=== PATIENT | male | born 1990 | race Caucasian/White ===

== ENCOUNTER 2018-11-08 19:26 | Emergency (ER) | payer OTHER ==
[~2018-11-08] VITALS: Ht 182.9 cm; Wt 83.0 kg
[~2018-11-08 19:26] MED LIST: AMPDEX10CR PO; HYDACE5 PO; IBUP400 PO; MINO100; Norco 5-325 Ta1 EACH PO
[2018-11-08 19:57] LABS: Source, Urine Clean Catch
[2018-11-08 19:59] LABS: Bilirubin, Urine Neg (Neg); Blood, Urine Neg (Neg); Glucose Qualitative, Urine Neg (Neg); Ketones, Urine Neg (Neg); Leukocyte Esterase, Urine 1+ (Neg); Nitrite, Urine Neg (Neg); Protein, Urine Neg (Neg); Urobilinogen, Urine NORM (Normal)
[2018-11-08 20:34] LABS: Appearance, Urine Clear (Clear); Color, Urine Yellow (P-Yellow)
[2018-11-08 20:35] LABS: Bacteria Not Seen /hpf; Red Blood Cells, Urine Not Seen /hpf (0-2); Squamous Epithelial Cells Not Seen /hpf (Few)
[2018-11-08] MEDS ORDERED: ONDA4ODT MM (21:23)
[2018-11-08] MEDS ORDERED: Vibramycin100 MG PO (21:23)
[2018-11-08] MEDS ORDERED: IBUP600 PO (21:23)
== END 2018-11-08 21:54 | disposition home or self-care (01) ==
LOC: ER 19:26
PROVIDERS: Emergency Medicine
DX: N45.1 Epididymitis (principal); F90.9 Attention-deficit hyperactivity disorder, unspecified type; Z88.0 Allergy status to penicillin; Z87.891 Personal history of nicotine dependence; Z79.899 Other long term (current) drug therapy
CPT/HCPCS: 76870; 81001; 87086; 96372; 99284-25; J0696